=== PATIENT | female | born 1985 | race American Indian/Alaskan Native ===

== ENCOUNTER 2017-09-14 08:20 | Emergency (ER) | payer OTHER ==
--- NOTE | 2017-09-14 08:30 | Emergency Department Report ---
Stated Complaint: ASTHMA Time Seen by Provider: 09/14/17 08:30 - HPI History of Present Illness: TO ER W ASTHMA AE NO SOB NO TRIPOD VSS NO CP MILD EXP WHEEZING MSE screening note: Focused history and physical exam performed. Due to findings the following was ordered: ED Disposition for MSE Condition: Stable
[2017-09-14 08:34] VITALS: BP 125/82
[2017-09-14] MEDS ORDERED: DUONEB *Not for PRN Use IH ONE ×2 (08:35→09:28)
[2017-09-14] MEDS ORDERED: PROVENTIL IH ONE ×3 (09:15→09:48)
[2017-09-14] MEDS ORDERED: ATROVENT IH ONE ×2 (09:15→09:48)
--- NOTE | 2017-09-14 09:44 | Emergency Department Report ---
ED Asthma HPI - General Chief Complaint: Adult Asthma Stated Complaint: ASTHMA Time Seen by Provider: 09/14/17 08:30 Source: patient Mode of arrival: Ambulatory Limitations: No Limitations - Related Data Previous Rx's Medication Instructions Recorded Last Taken Type ALBUTEROL Inhaler [ProAir HFA 2 puff IH QID PRN #1 inhalation 09/14/17 Unknown Rx Inhaler] Amoxicillin 500 mg PO BID #20 capsule 09/14/17 Unknown Rx Fluticasone [Flonase] 1 spray NS QDAY #1 bottle 09/14/17 Unknown Rx predniSONE [Deltasone] 20 mg PO DAILY #5 tablet 09/14/17 Unknown Rx Allergies Allergy/AdvReac Type Severity Reaction Status Date / Time No Known Allergies Allergy Unverified 09/14/17 08:29 ED Review of Systems ROS: Stated complaint: ASTHMA Other details as noted in HPI ED Past Medical Hx - Past Medical History Hx Asthma: Yes Additional medical history: ALLERGIES - Surgical History Past Surgical History?: No - Social History Smoking Status: Current Every Day Smoker Substance Use Type: Alcohol - Medications Home Medications: Home Medications Medication Instructions Recorded Confirmed Last Taken Type ALBUTEROL Inhaler [ProAir HFA 2 puff IH QID PRN #1 inhalation 09/14/17 Unknown Rx Inhaler] Amoxicillin 500 mg PO BID #20 capsule 09/14/17 Unknown Rx Fluticasone [Flonase] 1 spray NS QDAY #1 bottle 09/14/17 Unknown Rx predniSONE [Deltasone] 20 mg PO DAILY #5 tablet 09/14/17 Unknown Rx ED Physical Exam - General Limitations: No Limitations ED Course Vital Signs 09/14/17 09/14/17 09/14/17 08:29 08:48 09:11 Temperature 98.9 F Pulse Rate 95 H Pulse Rate [ 104 H 94 H Posterior Bilateral Throughout] Respiratory 18 Rate Respiratory 20 20 Rate [Posterior Bilateral Throughout] Blood Pressure 125/82 O2 Sat by Pulse 99 Oximetry Critical care attestation.: If time is entered above; I have spent that time in minutes in the direct care of this critically ill patient, excluding procedure time. ED Disposition Clinical Impression: Asthma with acute exacerbation Disposition: DC-01 TO HOME OR SELFCARE Is pt being admited?: No Does the pt Need Aspirin: No Condition: Stable Instructions: Asthma (ED) Referrals: PRIMARY CARE, [Primary Care Provider] - 3-5 Days [facility] [Outside] - 3-5 Days Time of Disposition: 09:43
== END 2017-09-14 10:53 | disposition home or self-care (01) ==
LOC: ED 08:20
DX: J45.901 Unspecified asthma with (acute) exacerbation (principal); F17.200 Nicotine dependence, unspecified, uncomplicated
CPT/HCPCS: 94640; 96372; 99283; J2930

== ENCOUNTER 2017-10-04 08:37 | Emergency (ER) | payer SELFPAY ==
[2017-10-04 09:01] VITALS: BP 130/81
[2017-10-04] MEDS ORDERED: DUONEB *Not for PRN Use IH ONE (12:06)
--- NOTE | 2017-10-04 12:10 | Emergency Department Report ---
Minor Respiratory - HPI Chief Complaint: Adult Asthma Stated Complaint: ASTHMA/COLD Time Seen by Provider: 10/04/17 12:06 Duration: 3 Days Pain Location: Throat, Chest Severity: moderate Minor Respiratory: Yes Sore Throat, Yes Able to Tolerate Fluids, Yes Cough, No Rhinorrhea, No Ear Pain, No Sick Contacts, No Hemoptysis, No Chest Pain, No Shortness of Breath, No Fever Other History: Patient reports being out of her asthma medications. She states that her friends usually given to her but they have not had any either. She does not have a primary care doctor. ED Review of Systems ROS: Stated complaint: ASTHMA/COLD Other details as noted in HPI Comment: All other systems reviewed and negative Constitutional: no symptoms reported Eyes: as per HPI ENT: as per HPI, throat pain Respiratory: no symptoms reported, cough, wheezing Cardiovascular: chest pain (with wheezing) Endocrine: no symptoms reported ED Past Medical Hx - Past Medical History Previous Medical History?: Yes Hx Asthma: Yes Additional medical history: ALLERGIES - Surgical History Past Surgical History?: No - Social History Smoking Status: Former Smoker Substance Use Type: Alcohol, Marijuana, Prescribed - Medications Home Medications: Home Medications Medication Instructions Recorded Confirmed Last Taken Type ALBUTEROL Inhaler [ProAir HFA 2 puff IH QID PRN #1 inhalation 10/04/17 Unknown Rx Inhaler] Amoxicillin 500 mg PO BID #20 capsule 10/04/17 Unknown Rx Fluticasone [Flonase] 1 spray NS QDAY #1 bottle 10/04/17 Unknown Rx predniSONE [Deltasone] 20 mg PO DAILY #5 tablet 10/04/17 Unknown Rx Minor Respiratory Exam - Exam General: Vital signs noted. No distress. Alert and acting appropriately. HEENT: Yes Pharyngeal Erythema, Yes Moist Mucous Membranes, No Pharyngeal Exudates, No Rhinorrhea, No Conjuctival Injection, No Frontal Tenderness, No Maxillary Tenderness Ear: Neither TM Bulge, Neither TM Erythema, Neither EAC Pain, Neither EAC Discharge Neck: Yes Supple, No Adenopathy Lungs: Yes Good Air Exchange, Yes Wheezes (bilateral wheezing), Yes Cough, No Ronchi, No Stridor, No Labored Respirations, No Retractions, No Use of Accessory Muscles, No Other Abnormal Lung Sounds Heart: Yes Regular, No Murmur Abdomen: Yes Normal Bowel Sounds, No Tenderness, No Peritoneal Signs Skin: No Rash, No Edema Neurologic: Alert and oriented, no deficits. Musculoskeletal: Unremarkable. ED Course Vital Signs 10/04/17 08:56 Temperature 99.1 F Pulse Rate 95 H Respiratory 16 Rate Blood Pressure 130/81 O2 Sat by Pulse 99 Oximetry - Reevaluation(s) Reevaluation #1: 10/04/17 12:32 She presents to the emergency room today with an acute exacerbation of her asthma. She states that she is out of her medications. She also states that she has tried to get her meds in the past but cannot afford them. This includes a machine. Patient educated about [employer] and [employer] [facility]. Coupons have also been given. Appropriate referrals are being given. Patient reports feeling better after respiratory treatment. She does seem very angry that she cannot get her medications free here at the hospital Reevaluation #2: 10/04/17 12:41 Patient reports feeling better after respiratory treatment. She is nontoxic non -ill appearing is a non-ill appearing. Sat 100% on room air. No increased work of breathing. Wheezing has resolved. Discharge home with detailed discharge instructions. Patient is very upset because just to keep coming back to the emergency room to get treated because she cannot afford her medications. Resources provided and reemphasize. ED Medical Decision Making - Medical Decision Making See note Vital signs are stable patient nontoxic without fever - Differential Diagnosis asthma exacerbation with or without infection Critical care attestation.: If time is entered above; I have spent that time in minutes in the direct care of this critically ill patient, excluding procedure time. ED Disposition Clinical Impression: Asthma, URTI (acute upper respiratory infection) Disposition: - TO HOME OR SELFCARE Is pt being admited?: No Does the pt Need Aspirin: No Condition: Stable Instructions: Asthma (ED) Additional Instructions: Medications can be purchased at a discounted rate at [email or web address] or [employer]. In fact her amoxicillin is free at [employer]. Please see referrals given below for [facility] where they will be able to assist you further with obtaining her asthma meds. The pharmacy discount card may also be of assistance. [employer] is a website that she can also go to define these medications at all cost you can afford Hydrate well Treatment or Tylenol for pain or fever Avoid asthma triggers I'll up with physician as noted below Prescriptions: ALBUTEROL Inhaler [ProAir HFA Inhaler] 2 puff IH QID PRN #1 inhalation PRN Reason: Shortness Of Breath Amoxicillin 500 mg PO BID #20 capsule Fluticasone [Flonase] 1 spray NS QDAY #1 bottle predniSONE [Deltasone] 20 mg PO DAILY #5 tablet Referrals: JADA MENDOZA MD [Primary Care Provider] - 3-5 Days NOEMI BUCHANAN MD [Staff Physician] - 3-5 Days [facility] [Outside] - 3-5 Days Time of Disposition: 12:09
== END 2017-10-04 12:56 | disposition home or self-care (01) ==
LOC: ED 08:37
DX: J45.909 Unspecified asthma, uncomplicated (principal); J06.9 Acute upper respiratory infection, unspecified; F12.10 Cannabis abuse, uncomplicated; Z87.891 Personal history of nicotine dependence
CPT/HCPCS: 93005; 93010; 94640; 96372; 99282; J2930